=== PATIENT | female | born 1980 | race Caucasian/White ===

== ENCOUNTER 2016-10-02 02:48 | Inpatient (IN) | payer OTHER ==
[2016-10-02] VITALS (73 sets, daily range): BP systolic 92–139; BP diastolic 47–91; PULSE 20–114; RESP 16–20; TEMP 98.2–100.3; O2SAT 99–100
[2016-10-02] MEDS ORDERED: LACTATED RINGER'S 1000 ML INJ 1,000 ML IV PRN (03:29)
[2016-10-02] MEDS ORDERED: MINERAL OIL 10 ML VIAL TOPICAL PRN (03:30)
[2016-10-02] MEDS ORDERED: SODIUM CHLORID 0.9% 500 ML INJ 500 ML IV PRN (03:30)
[2016-10-02] MEDS ORDERED: CITRIC ACID-SODIUM CITRATE LIQ 30 ML UDC PO SCH (03:30)
[2016-10-02] MEDS ORDERED: LIDOCAINE HCL 1% 50 ML VIAL I-DERMAL PRN (03:30)
[2016-10-02] MEDS ORDERED: OXYTOCIN 30 UNITS-500ML PREMIX 500 ML IV ONE ×2 (03:30→12:00)
[2016-10-02] MEDS ORDERED: LIDOCAINE HCL 1% 50 ML VIAL INFIL PRN (03:30)
--- NOTE | 2016-10-02 03:39 | HHI.HP ---
HPI Chief Complaint Vaginal bleeding contractions, and possibly leaking fluid Date Seen: Oct 02, 2016 Travel History International Travel<30 Days: No Contact w/Intl Traveler<30Days: No Known Affected Area: No History of Present Illness HPI Patient is 36-year-old white female previous 1 and vaginal delivery 1 who presents now at [address] Godwin, who presents complaining of possibly leaking fluid and noticed bleeding. She is having contractions and with pain. heart rate tracing is reassuring the not quite reactive. The patient desires a she's discuss that with Dr. godwin and she is motivated to deliver vaginally, she understands that the is considered safe however there is slightly less than 1% chance of uterine rupture and she understands this. And knows the benefits and risk of proceeding forward Para: 2 : 3 History Obstetric History Obstetric History One vaginal delivery, 1 Past Surgical History Narrative Surgical 1 Social History Alcohol Use: No Tobacco Use: No Substance Abuse: No Allergies-Medications (Allergen,Severity, Reaction): Coded Allergies: No Known Allergies (Verified , 01/20/15) Home Meds No Active Prescriptions or Reported Meds Review of Systems General / Constitutional: No: Fever, Weight Gain, Chills, Other Eyes: No: Diploplia, Blurred Vision, Visual changes, Pain, Photophobia HENT: No: Headaches, Vertigo, Lightheadedness Cardiovascular: No: Irregular Rhythm, Chest Pain or Discomfort, Palpitations, Tachycardia, Syncope, Varicosities, Edema, Cyanosis Respiratory: No: Cough, Short of Breath, Other Gastrointestinal: Abdominal Pain, No: Nausea, Vomiting, Diarrhea Genitourinary: Vaginal Bleeding, No: Decreased Urinary Output, Oliguria Musculoskeletal: No: Limited ROM, Weakness, Cramping, Edema, Pain Skin: No Rash, No Itching, No Dryness, No Lumps, No Change in Pigmentation, No Change in Nails, No Alopecia, No Lesions Neurologic: No: Weakness, Dizziness, Syncope, Focal Abnormalities, Coordination Problem, Headache, Slurred Speech, Seizures Psychiatric: No: Depression, Suicidal Ideations, Homicidal Ideation Endocrine: No: Heat Intolerance, Cold Intolerance, Polydipsia, Polyuria, Other Physical Exam Narrative GENERAL: Well-nourished, well-developed patient. SKIN: Warm and dry. HEAD: Normocephalic and atraumatic. EYES: No scleral icterus. No injection or drainage. ENT: No nasal drainage noted. Mucous membranes pink. Airway patent. NECK: Supple, trachea midline. No JVD. CARDIOVASCULAR: Regular rate and rhythm without murmurs, gallops, or rubs. RESPIRATORY: Breath sounds equal bilaterally. No accessory muscle use. BREASTS: Bilateral exam showed no masses , no retractions, no nipple discharge. ABDOMEN/GI: Abdomen soft, non-tender, bowel sounds present, no rebound, no guarding Gravid to [38-] weeks size Fundal Height: [38-] GENITOURINARY: External Genitalia: intact and normal in appearance BUS glands: [-] Cervix: [-] Dilatation: [4-] Effacement: [-70] Station: [-3] Presentation: [vtx-] Membranes: [intact or ruptured] unclear's patient's leaking or not because the amount of bleeding or saying cannot do an amnio sure Uterine Contractions: [reg-] FHT's: Category: [-1] Baseline: [-155] Reactive: [no-] Variability: [-mod] Decels: [Occasional variable-] EXTREMITIES: No cyanosis or edema. BACK: Nontender without obvious deformity. No CVA tenderness. NEUROLOGICAL: Awake and alert. Motor and sensory grossly within normal limits. Five out of 5 muscle strength in all muscle groups. Normal speech. Data Data Orders Admit To Inpatient (10/02/16 ) Vital Signs (Adult) .Per protocol (10/02/16 03:29) Heart (10/02/16 03:29) Amnioinfusion (10/02/16 03:29) Urinary Catheter Management .ONCE (10/02/16 03:29) Diet Liquid (10/02/16 Breakfast) Lactated Ringer's 1000 Ml Inj (Lr 1000 M (10/02/16 03:29) Lactated Ringer's 1000 Ml Inj (Lr 1000 M (10/02/16 03:29) Sodium Chlorid 0.9% 500 Ml Inj (Ns 500 M (10/02/16 03:30) Sodium Chlor 0.9% 1000 Ml Inj (Ns 1000 M (10/02/16 03:49) Lidocaine 1% Inj (50 Ml) (Xylocaine 1% I (10/02/16 03:30) Citric Acid-Sodium Citrate Liq (Bicitra (10/02/16 03:30) Fentanyl Inj (Fentanyl Inj) (10/02/16 03:30) Fentanyl Inj (Fentanyl Inj) (10/02/16 03:30) Complete Blood Count With Diff (10/02/16 03:29) Hold Clot (10/02/16 03:29) Abo/Rh Blood Type (10/02/16 03:29) Urinalysis - C+S If Indicated (10/02/16 03:29) Type And Screen (10/02/16 03:29) Resp Oxygen Non Rebreathe Mask (10/02/16 ) ^ Epidural / Intrathecal Infus (10/02/16 03:29) Oxytocin 30 Units-500ml Premix (Pitocin (10/02/16 03:30) Lidocaine 1% Inj (50 Ml) (Xylocaine 1% I (10/02/16 03:30) Light Mineral Oil (Muri-Lube Oil) (10/02/16 03:30) Act Partial Throm Time (Ptt) (10/02/16 03:31) Prothrombin Time / Inr (Pt) (10/02/16 03:31) Labs Ultrasound on the patient's records shows the placenta to the maternal left no previa noted Assessment/Plan Assessment and Plan Patient is 36-year-old white female previous 1 now at 39 weeks tomorrow presents in early labor cervix 4 cm 70% -3 with a moderate amount of vaginal bleeding, uncertain membranes status says she thinks she may have leaked fluid we cannot discern because of the degree of blood noted whether membranes are intact or not however with the patient stephanie painfully regularly and eating 4 cm dilated with this much bleeding H indicated to admit and plan delivery Impressions-- term multipara review section for with the contractions and cervical change 4 cm and moderate vaginal bleeding Plan admit for labor management augmentation as needed and anticipate delivery patient understands risk and benefits and signed consent forms- Dr. Sandhu is manager of broadcast content for Dr. bill pablo we'll notify her of the patient's arrival. Wilber Keller II, MD Oct 02, 2016 03:39
[2016-10-02] MEDS ORDERED: SODIUM CHLOR 0.9% 1000 ML INJ 1,000 ML IV PRN (03:49)
[2016-10-02 04:07] LABS: AUTOMATED NEUTROPHIL # 8.2 TH/MM3 (1.8-7.7); BASOPHIL % 0.3 % (0.0-2.0); EOSINOPHIL # 0.2 TH/MM3 (0-0.4); EOSINOPHIL % 2.2 % (0.0-4.0); HEMATOCRIT 36.6 % (35.0-46.0); LYMPH % 13.6 % (9.0-44.0); LYMPHOCYTE # 1.4 TH/MM3 (1.0-4.8); MEAN CORPUSCULAR HEMOGLOBIN 33.7 PG (27.0-34.0); MEAN CORPUSCULAR HGB CONC 35.8 % (32.0-36.0); MONO % 6.3 % (0.0-8.0); NEUT % 77.6 % (16.0-70.0); PLATELET COUNT 156 TH/MM3 (150-450); RED BLOOD COUNT 3.89 MIL/MM3 (4.00-5.30); RED CELL DISTRIBUTION WIDTH 14.9 % (11.6-17.2); WHITE BLOOD COUNT 10.6 TH/MM3 (4.0-11.0)
[2016-10-02] MEDS ORDERED: fentaNYL 2MCG-BUPIV 0.125% INJ 100 ML ONE (04:10)
[2016-10-02 04:13] LABS: HEMO FLAGS AUTO DIFF
[2016-10-02 04:43] LABS: BANDS 4 % (0-6); EOSINOPHILS 1 % (0-4); METAMYELOCYTES 1 % (0-1); MYELOCYTES 1 % (0-0); NEUTROPHIL # MANUAL DIFF 8.6 TH/MM3 (1.8-7.7); PLATELET ESTIMATE SMEAR NORMAL (NORMAL); PLATELET MORPHOLOGY NORMAL (NORMAL); POLYS (SEG NEUTROPHILS) 75 % (16-70); SCAN/DIFF FINAL DIFF MANUAL; WBC DIFF SAMPLE 100
[2016-10-02 04:59] LABS: BLOOD, URINE MOD (NEG); GLUCOSE,URINE NEG (NEG); KETONE, URINE NEG (NEG); MUCUS URINE FEW /lpf (OCC); NITRITE,URINE NEG (NEG); PH, URINE 5.5 (5.0-8.5); SQUAMOUS EPITHELIAL CELL URINE <1 /hpf (0-5); URINE COLOR LIGHT-YELLOW (YELLW/STRAW)
[2016-10-02 05:00] LABS: COMMENT (UR) CULT NOT INDICATED; CULTURE IF INDICATED CULT NOT INDICATED
[2016-10-02] MEDS: LACTATED RINGER'S 1000 ML INJ 1,000 ML IV SCH ×2 (07:00→11:29)
[2016-10-02] MEDS ORDERED: ePHEDrine/NS 25 MG/5 ML SYR IV PRN (08:15)
[2016-10-02] MEDS ORDERED: NO SYSTEM NARCOTICS PRN (08:15)
[2016-10-02] MEDS ORDERED: fentaNYL 2MCG-BUPIV 0.125% 100 ML EPIDURAL SCH (08:15)
[2016-10-02] MEDS ORDERED: DO NOT ADMINISTER ANTICOAGULANTS PRN (08:15)
[2016-10-02] MEDS ORDERED: GENTAMICIN INJ 80 MG in SODIUM CHLORIDE 0.9% INJ 100 ML IV SCH (10:00)
--- NOTE | 2016-10-02 11:00 | PD.LABORPN ---
Subjective Subjective Pt co pressure type pain Objective Vital Signs Vital Signs Date Time Temp Pulse Resp B/P Pulse Ox O2 Delivery O2 Flow Rate FiO2 10/02/16 09:40 100.3 10/02/16 09:34 18 10/02/16 08:46 97 116/61 10/02/16 08:45 110 10/02/16 08:40 107 10/02/16 08:35 111 10/02/16 08:30 104 116/82 10/02/16 08:30 94 10/02/16 08:22 98.7 18 10/02/16 08:15 110 120/70 10/02/16 08:15 107 10/02/16 08:10 110 10/02/16 08:05 112 10/02/16 08:00 111 109/67 10/02/16 08:00 104 10/02/16 07:50 104 10/02/16 07:48 102 109/69 10/02/16 07:45 106 10/02/16 07:45 102 10/02/16 07:39 98.2 18 10/02/16 07:35 108 10/02/16 07:30 105 117/76 10/02/16 07:30 101 10/02/16 07:25 105 10/02/16 07:20 98 10/02/16 07:15 104 121/73 10/02/16 07:15 99 10/02/16 07:05 92 10/02/16 07:00 95 10/02/16 07:00 90 111/64 10/02/16 06:45 92 10/02/16 06:45 95 113/77 10/02/16 05:55 96 10/02/16 05:50 99 10/02/16 05:45 97 114/62 10/02/16 05:45 93 10/02/16 05:40 99 10/02/16 05:35 100 10/02/16 05:30 106 101/60 10/02/16 05:30 109 10/02/16 05:25 104 10/02/16 05:20 103 10/02/16 05:15 105 10/02/16 05:15 101 108/71 10/02/16 05:10 101 10/02/16 05:05 104 10/02/16 05:00 112 110/91 10/02/16 05:00 110 10/02/16 04:52 108 105/67 10/02/16 04:50 99 10/02/16 04:48 92 108/70 10/02/16 04:46 103 92/73 10/02/16 04:45 107 10/02/16 04:40 109 10/02/16 04:35 105 10/02/16 04:32 111 139/69 10/02/16 04:30 111 10/02/16 04:27 100 129/88 10/02/16 04:25 109 10/02/16 04:10 18 10/02/16 03:30 18 Objective Pelvic Exam: Cervix: 8-9 with anterior lip/ caput large+1 station Dilatation: [-] Effacement: [-] Station: [-] Presentation: [-] Membranes: [intact or ruptured] Uterine Contractions: [-] FHT's: Category: 150's good BTBV, occ moderate variables, overall reassuring Baseline: [-] Reactive: [-] Variability: [-] Decels: [-] Assessment/Plan Assessment and Plan at 8-9 cm, progress slowing down...will give 1 more hour to make progress, if not, will proceed with c/s Asha Bryant MD Oct 02, 2016 11:00
--- NOTE | 2016-10-02 11:54 | PD.LABORPN ---
Subjective Subjective Pt still in pain with pressure Objective Vital Signs Vital Signs Date Time Temp Pulse Resp B/P Pulse Ox O2 Delivery O2 Flow Rate FiO2 10/02/16 11:29 100.1 18 10/02/16 11:20 105 10/02/16 11:16 111 118/62 10/02/16 11:15 97 10/02/16 11:10 99 10/02/16 11:05 100 10/02/16 11:01 94 121/60 10/02/16 11:00 97 10/02/16 10:45 91 10/02/16 10:45 108 10/02/16 10:40 109 10/02/16 10:35 103 10/02/16 10:30 101 10/02/16 10:30 103 114/64 10/02/16 10:25 101 10/02/16 10:16 113 137/80 10/02/16 10:00 110 110/67 10/02/16 09:45 105 110/75 10/02/16 09:40 100.3 10/02/16 09:34 18 10/02/16 09:16 114 104/47 10/02/16 09:15 107 10/02/16 08:46 97 116/61 10/02/16 08:45 110 10/02/16 08:40 107 10/02/16 08:35 111 10/02/16 08:30 104 116/82 10/02/16 08:30 94 10/02/16 08:22 98.7 18 10/02/16 08:15 110 120/70 10/02/16 08:15 107 10/02/16 08:10 110 10/02/16 08:05 112 10/02/16 08:00 111 109/67 10/02/16 08:00 104 10/02/16 07:50 104 10/02/16 07:48 102 109/69 10/02/16 07:45 106 10/02/16 07:45 102 10/02/16 07:39 98.2 18 10/02/16 07:35 108 10/02/16 07:30 105 117/76 10/02/16 07:30 101 10/02/16 07:25 105 10/02/16 07:20 98 10/02/16 07:15 104 121/73 10/02/16 07:15 99 10/02/16 07:05 92 10/02/16 07:00 95 10/02/16 07:00 90 111/64 10/02/16 06:45 92 10/02/16 06:45 95 113/77 10/02/16 05:55 96 10/02/16 05:50 99 10/02/16 05:45 97 114/62 10/02/16 05:45 93 10/02/16 05:40 99 10/02/16 05:35 100 10/02/16 05:30 106 101/60 10/02/16 05:30 109 10/02/16 05:25 104 10/02/16 05:20 103 10/02/16 05:15 105 10/02/16 05:15 101 108/71 10/02/16 05:10 101 10/02/16 05:05 104 10/02/16 05:00 112 110/91 10/02/16 05:00 110 10/02/16 04:52 108 105/67 10/02/16 04:50 99 10/02/16 04:48 92 108/70 10/02/16 04:46 103 92/73 10/02/16 04:45 107 10/02/16 04:40 109 10/02/16 04:35 105 10/02/16 04:32 111 139/69 10/02/16 04:30 111 10/02/16 04:27 100 129/88 10/02/16 04:25 109 10/02/16 04:10 18 Objective Pelvic Exam: Cervix: 8-9/ anterior lip swollen/+1...no change in the past hour Dilatation: [-] Effacement: [-] Station: [-] Presentation: [-] Membranes: [intact or ruptured] Uterine Contractions: [-] FHT's: Category: [-] Baseline: [-] Reactive: [-] Variability: [-] Decels: [-] Assessment/Plan Assessment and Plan Arrest of active phase of labor in a with undesired fertility 1. proceed with repeat c/s with btl Asha Bryant MD Oct 02, 2016 11:54
[2016-10-02] MEDS ORDERED: ONDANSETRON HCL 4 MG/2 ML VIAL IV PUSH PRN (12:00)
[2016-10-02] MEDS ORDERED: SODIUM CHLORIDE 0.9% FLUSH 10 ML FLUSH IV FLUSH PRN (12:00)
[2016-10-02] MEDS ORDERED: AMPICILLIN INJ 2,000 MG in SODIUM CHLORIDE 0.9% INJ 100 ML IV SCH (12:00)
[2016-10-02] MEDS ORDERED: KETOROLAC TROMETHAMINE 60 MG/2 ML (IM) VIAL IM PRN ×2 (12:00)
[2016-10-02] MEDS ORDERED: SIMETHICONE 80 MG CHEWABLE TAB PO PRN (12:00)
[2016-10-02] MEDS ORDERED: ONDANSETRON HCL 4 MG/2 ML VIAL ONE (13:04)
[2016-10-02] MEDS ORDERED: EPIDURAL-NALOXONE HCL 0.4 MG/ML AMP IV PRN (13:04)
[2016-10-02] MEDS ORDERED: MORPHINE SULFATE PF 5 MG/10 ML VIAL ONE (13:04)
[2016-10-02] MEDS ORDERED: EPIDURAL-DIPHENHYDRAMINE HCL 50 MG CAP PO PRN (13:04)
[2016-10-02] MEDS ORDERED: EPIDURAL-DO NOT ADMINISTER ANTICOAGULANTS PRN (13:04)
[2016-10-02] MEDS ORDERED: EPIDURAL-DIPHENHYDRAMINE HCL 50 MG/ML VIAL IV PUSH PRN (13:04)
[2016-10-02] MEDS ORDERED: EPIDURAL-NO SYSTEMIC NARCOTICS PRN (13:04)
[2016-10-02] MEDS ORDERED: OXYTOCIN 10 UNIT/ML AMP ONE (13:05)
[2016-10-02] MEDS ORDERED: LACTATED RINGER'S 1000 ML INJ 1,000 ML IV SCH (16:54)
[2016-10-02] MEDS ORDERED: SODIUM CHLORIDE 0.9% FLUSH 10 ML FLUSH IV FLUSH SCH (21:00)
[2016-10-02] MEDS ORDERED: OXYTOCIN 30 UNITS-500ML PREMIX 500 ML IV PRN (22:00)
[2016-10-03] VITALS: BP 93/58; PULSE 107; RESP 17; TEMP 98.4
[2016-10-03 03:35] VITALS: BP 98/56; PULSE 97; RESP 16; TEMP 98; O2SAT 97
[2016-10-03] MEDS: IBUPROFEN 600 MG TAB PO PRN ×3 (03:45→21:01)
[2016-10-03 05:54] LABS: AUTOMATED NEUTROPHIL # 10.4 TH/MM3 (1.8-7.7); BASOPHIL % 0.2 % (0.0-2.0); EOSINOPHIL # 0.1 TH/MM3 (0-0.4); EOSINOPHIL % 0.5 % (0.0-4.0); HEMATOCRIT 27.4 % (35.0-46.0); HEMO FLAGS DIFF FINAL; LYMPH % 9.3 % (9.0-44.0); LYMPHOCYTE # 1.2 TH/MM3 (1.0-4.8); MEAN CELL VOLUME 94.8 FL (80.0-100.0); MEAN CORPUSCULAR HEMOGLOBIN 33.7 PG (27.0-34.0); MEAN CORPUSCULAR HGB CONC 35.5 % (32.0-36.0); MONO % 8.2 % (0.0-8.0); NEUT % 81.8 % (16.0-70.0); PLATELET COUNT 132 TH/MM3 (150-450); RED BLOOD COUNT 2.89 MIL/MM3 (4.00-5.30); WHITE BLOOD COUNT 12.7 TH/MM3 (4.0-11.0)
[2016-10-03 08:00] VITALS: BP 100/62; PULSE 90; RESP 16; TEMP 98.4
--- NOTE | 2016-10-03 12:22 | HHI.OB ---
Subjective Post Operative Day: 1 Remarks Pt doing well, tolerating po, good pain control Objective Vitals/I&O Vital Signs Date Time Temp Pulse Resp B/P Pulse Ox O2 Delivery O2 Flow Rate FiO2 10/03/16 08:00 98.4 16 10/03/16 08:00 90 100/62 10/03/16 03:35 98.0 97 10/03/16 03:35 97 16 98/56 10/03/16 00:00 98.4 10/03/16 00:00 107 17 93/58 10/02/16 20:20 98.5 98 18 101/60 10/02/16 20:00 20 10/02/16 19:10 20 10/02/16 14:35 99.2 101 20 92/49 10/02/16 13:55 98.9 10/02/16 13:31 101 18 121/76 100 10/02/16 13:18 102 16 94/64 100 10/02/16 13:05 98.5 111 18 101/55 99 Result Diagram: 10/03/16 0459 Objective Remarks GENERAL: Well-nourished, well-developed patient. CARDIOVASCULAR: Regular rate and rhythm without murmurs, gallops, or rubs. RESPIRATORY: Breath sounds equal bilaterally. No accessory muscle use. ABDOMEN/GI: Abdomen soft, non-tender, bowel sounds present. Incision: Clean, dry and intact. Fundus: Firm, non-tender at umbilicus. GENITOURINARY: Light to moderate bleeding. EXTREMITIES: No cyanosis or edema, non-tender, without signs of DVT. Medications and IVs Current Medications Medications (Trade) Dose Ordered Sig/Nava Route Start Time Stop Time Status Last Admin Lactated Ringer's 1,000 ml @ 125 mls/hr Q8H IV 10/02/16 03:29 10/02/16 07:00 Lactated Ringer's 1,000 ml @ 3,000 mls/hr Q20M PRN IV 10/02/16 03:29 (NS 1000 ml Inj) 1,000 ml @ 100 mls/hr Q10H PRN IV 10/02/16 03:49 Mineral Oil 10 ml 10 ml UNSCH PRN TOPICAL 10/02/16 03:30 Fentanyl/ Bupivacaine HCl 100 ml @ 0 mls/hr TITRATE EPIDURAL 10/02/16 08:15 10/02/16 09:34 (Lr 1000 ml Inj) 1,000 ml @ 100 mls/hr Q10H IV 10/02/16 16:54 10/03/16 12:53 10/03/16 00:00 (NS Flush) 2 ml BID IV FLUSH 10/02/16 21:00 (NS Flush) 2 ml UNSCH PRN IV FLUSH 10/02/16 12:00 (Mylicon Chew) 80 mg QID PRN PO 10/02/16 12:00 (Motrin) 600 mg Q6H PRN PO 10/02/16 12:00 10/03/16 03:45 (Percocet 5-325 Mg) 1 tab Q4H PRN PO 10/02/16 12:00 (Percocet 5-325 Mg) 2 tab Q4H PRN PO 10/02/16 12:00 (Irene-Colace) 2 tab Q12H PRN PO 10/02/16 12:00 (M-M-R Ii Inj) 0.5 ml ONCE ONCE SQ 10/03/16 16:00 10/03/16 16:01 (Boostrix Inj) 0.5 ml ONCE ONCE IM 10/03/16 16:00 10/03/16 16:01 (Zofran Inj) 4 mg Q6H PRN IV PUSH 10/02/16 12:00 10/02/16 15:35 Miscellaneous Information NO SYSTEMIC NARCOTICS TO BE GIVEN FO... UNSCH PRN .XX 10/02/16 13:04 10/03/16 13:03 (Narcan Inj) 0.4 mg UNSCH PRN IV 10/02/16 13:04 10/03/16 13:03 (Benadryl Inj) 25 mg Q6H PRN IV PUSH 10/02/16 13:04 10/03/16 13:03 (Benadryl) 50 mg Q6H PRN PO 10/02/16 13:04 10/03/16 13:03 Miscellaneous Information ALL NURSING DEPARTMENTS UNSCH PRN .XX 10/02/16 13:04 10/03/16 13:03 Assessment/Plan Assessment and Plan Patient is 36-year-old white female previous 1 now at 39 weeks tomorrow presents in early labor cervix 4 cm 70% -3 with a moderate amount of vaginal bleeding, uncertain membranes status says she thinks she may have leaked fluid we cannot discern because of the degree of blood noted whether membranes are intact or not however with the patient stephanie painfully regularly and eating 4 cm dilated with this much bleeding H indicated to admit and plan delivery Impressions-- term multipara review section for with the contractions and cervical change 4 cm and moderate vaginal bleeding Plan admit for labor management augmentation as needed and anticipate delivery patient understands risk and benefits and signed consent forms- Dr. Sandhu is job specification writer for Dr. bill pablo we'll notify her of the patient's arrival. Discharge Planning POD # 1 s/p repeat c/s with BTL due to arrest of labor, pt doing well today 1. routine care 2. plan for dc next 1-2 Asha Wagner MD Oct 03, 2016 12:22
[2016-10-03] MEDS: oxyCODONE/ACETAMINOPHEN 5 MG/325 MG TAB PO PRN ×2 (13:41→21:01)
--- NOTE | 2016-10-03 15:13 | MP ---
cc: MI BRYANT M.D. DATE OF SURGERY: 10/02/2016. PREOPERATIVE DIAGNOSIS: 1. As intrauterine at 39 weeks gestation with previous section with a arrest of labor at 8-9 cm. 2. Undesired fertility. POSTOPERATIVE DIAGNOSIS: 1. As intrauterine at 39 weeks gestation with previous section with a arrest of labor at 8-9 cm. 2. Undesired fertility. OPERATIVE PROCEDURE PERFORMED: Repeat low transverse section with bilateral tubal ligation. OPERATING SURGEON: Mi Bryant MD. ASSISTING SURGEON: Shon Sandhu MD. ANESTHESIA: Epidural. FINDINGS IN SURGERY: A viable female weighing 7 pounds, 14 ounces with Apgars of 9 and 9. Normal-appearing tubes and ovaries bilaterally. ESTIMATED BLOOD LOSS: 800 cc. COMPLICATIONS: NONE. DESCRIPTION OF THE PROCEDURE IN DETAIL: After proper consents were obtained and blood had already been typed and screened, the patient was taken to the operating room where an adequate level of epidural anesthesia was achieved. She was sterilely prepped and draped. Maguire catheter had already been placed. We did a revision of a prior Pfannenstiel skin incision using a sharp knife. We then carried that down to the fascia using the Bovie cautery. Fascia was nicked in the midline and extended superolaterally on each side. There was some sharp dissection of the muscles off the fascia. The peritoneum was identified, grasped with two hemostats, entered sharply with Metzenbaum scissors. This incision was extended superiorly and inferiorly paying close attention to the bladder. Bladder flap was made and bladder blade was placed. We made a transverse incision in the lower uterine segment that was extended using the finger fracture technique. Rupture of membranes revealed clear fluid. A controlled delivery of the vertex, bulb suction to the oropharynx and the nares and controlled delivery of the body followed. The cord was clamped x2 and cut in-between. The was handed to the team in attendance. A viable female 7 pounds 14 ounces with Apgars of 9 and 9. At this time, a cord blood sample was obtained. Placenta was removed. The uterus was exteriorized, wiped clean of clots and debris. The incision was closed with a #1 chromic suture starting at each apex and meeting in the midline in a running interlocking fashion. Excellent hemostasis noted. Irrigation was performed of the abdominopelvic cavity. Hemostasis was assured. We performed the tubal ligation on the right side grabbing the tube in the mid-ampullary portion and placing a #0 plain tie beneath the 1.5 cm segment of tube and a second tie was placed beneath that. The tube was cut off for permanent pathology. Hemostasis was achieved. The same thing was done on the left side without difficulty. We then placed the uterus back into the abdominopelvic cavity. The tubal sites were hemostatic. The incision was hemostatic. We went ahead and reapproximated the muscles using #1 chromic suture x1. We then closed the fascia using a #0 Vicryl starting at each apex and meeting in the midline in a running fashion. Irrigation was performed of the subcutaneous. Hemostasis was achieved with the Bovie cautery and the skin was closed with florence. All sponge, lap and needle counts were correct x3. MD ALCIDES Barrow/JCC /7:51 AM /2:57 PM
[2016-10-03 16:00] VITALS: BP 108/68; PULSE 88; RESP 16; TEMP 98.6
[2016-10-03] MEDS ORDERED: DIPHTH/TETANUS/ACEL PERTUSSIS (BOOSTER) 0.5 ML VIAL/PFS IM ONE (16:00)
[2016-10-03] MEDS ORDERED: MEASLES, MUMPS, RUBELLA VACCINE 0.5 ML VIAL SQ ONE (16:00)
[2016-10-03 21:00] VITALS: BP 89/60; PULSE 98; RESP 18; TEMP 98.6
[2016-10-03] MEDS: DOCUSATE SODIUM 50 MG/SENNA 8.6 MG TAB PO PRN (21:00)
[2016-10-04] MEDS: oxyCODONE/ACETAMINOPHEN 5 MG/325 MG TAB PO PRN ×3 (01:14→12:14)
[2016-10-04 08:00] VITALS: BP 104/84; PULSE 74; RESP 18; TEMP 98.8
[2016-10-04] MEDS: IBUPROFEN 600 MG TAB PO PRN (08:51)
[2016-10-04] MEDS: DOCUSATE SODIUM 50 MG/SENNA 8.6 MG TAB PO PRN (08:51)
--- NOTE | 2016-10-04 10:39 | HHI.DS ---
Admission Date Oct 02, 2016 at 03:42 Discharge Date: Oct 04, 2016 Admitting Diagnosis labor at 39 wks, Diagnosis: Delivery Date: Oct 02, 2016 : Repeat Reason: arrest of labor, undesired fertility Infant: Female, Single Brief History Patient is 36-year-old white female previous 1 and vaginal delivery 1 who presents now at [address] Godwin, who presents complaining of possibly leaking fluid and noticed bleeding. She is having contractions and with pain. heart rate tracing is reassuring the not quite reactive. The patient desires a she's discuss that with Dr. godiwn and she is motivated to deliver vaginally, she understands that the is considered safe however there is slightly less than 1% chance of uterine rupture and she understands this. And knows the benefits and risk of proceeding forward Pt Condition on Discharge: Good Discharge Disposition: Discharge Home Discharge Instructions Diet Instructions: As Tolerated, No Restrictions Activities You Can Perform: Pelvic Rest Activities to Avoid: Sexual Activity Asha Bryant MD Oct 04, 2016 10:39
[2016-10-04] MEDS ORDERED: OXYC1TAB63 PO (10:41)
== END 2016-10-04 13:19 | disposition home or self-care (01) | DRG 766 ==
LOC: HOBED 02:48 → H2EA 03:42 → H1EA 14:25
PROVIDERS: ADMIT Obstetrics & Gynecology; ATTEND Obstetrics & Gynecology
PROC: 10D00Z1 Extraction of Products of Conception, Low, Open Approach (ICD-10-PCS; principal; 2016-10-02)
PROC: 0UB70ZZ Excision of Bilateral Fallopian Tubes, Open Approach (ICD-10-PCS; 2016-10-02)
PROC: 00HU33Z Insertion of Infusion Device into Spinal Canal, Percutaneous Approach (ICD-10-PCS; 2016-10-02)
PROC: 3E0R3CZ (ICD-10-PCS; 2016-10-02)
DX: O34.211 Maternal care for low transverse scar from previous cesarean delivery (principal); O09.523 Supervision of elderly multigravida, third trimester; O62.1 Secondary uterine inertia; Z30.2 Encounter for sterilization; Z3A.39 39 weeks gestation of pregnancy; Z37.0 Single live birth
CPT/HCPCS: 59025; 81001; 85007; 85025; 85027; 88302; J0290; J0690; J1580; J2274; J2405; J2590; J3010; J7120